=== PATIENT | male | born 1985 | race Caucasian/White ===

== ENCOUNTER 2017-05-09 10:04 | Emergency (ER) | payer SELFPAY ==
[2017-05-09 10:09] VITALS: BP 164/107
== END 2017-05-09 10:34 | disposition left against medical advice (07) ==
LOC: ED 10:04
DX: Z02.89 Encounter for other administrative examinations (principal)
CPT/HCPCS: 83880; G0480; J2060; J3486

== ENCOUNTER 2017-05-09 10:04 | Emergency (ER) | payer OTHER | END 2017-05-09 10:37 | disposition other institution (70) | LOC: ED 10:04 | DX: Z02.89 Encounter for other administrative examinations (principal) ==